=== PATIENT | male | born 1985 | race Caucasian/White ===

== ENCOUNTER → 2018-02-18 | Outpatient (CLI) | payer BC ==
--- NOTE | 2018-02-18 10:03 | XR ---
EXAMINATION TYPE: XR chest 2V DATE OF EXAM: 02/18/2018 COMPARISON: NONE TECHNIQUE: PA and lateral views submitted. HISTORY: Smoking, FINDINGS: The lungs are clear and there is no pneumothorax, pleural effusion, or focal pneumonia. IMPRESSION: 1. No acute process.
== END | disposition home or self-care (01) ==
LOC: RADXRMAIN 09:43
PROVIDERS: ATTEND Family Medicine
DX: Z00.00 Encounter for general adult medical examination without abnormal findings (principal)
CPT/HCPCS: 71046

== ENCOUNTER 2018-04-13 08:21 | Emergency (ER) | payer BC ==
[2018-04-13 08:28] VITALS: BP 100/54; PULSE 59; RESP 16; TEMP 97.9
--- NOTE | 2018-04-13 08:46 | ED ---
General Adult HPI - General Chief complaint: Recheck/Abnormal Lab/Rx Stated complaint: stiches re opened Time Seen by Provider: 04/13/18 08:41 Source: patient, RN notes reviewed, old records reviewed Mode of arrival: ambulatory Limitations: no limitations - History of Present Illness Initial comments: 32-year-old male presents for wound evaluation. Patient had lipoma removal on March 20. approximately 10 days after he had sutures removed. He presents today for evaluation of incision. 4 days prior to arrival patient was exercising, felt that his incision may have reopened. Lipoma Was removed from the right flank. Denies any purulence or erythema. Denies pain complaints at the site. Denies fever or chills. Patient is otherwise healthy. - Related Data Allergies Allergy/AdvReac Type Severity Reaction Status Date / Time No Known Allergies Allergy Verified 04/13/18 08:28 Review of Systems ROS Statement: Those systems with pertinent positive or pertinent negative responses have been documented in the HPI. ROS Other: All systems not noted in ROS Statement are negative. Past Medical History Past Medical History: No Reported History History of Any Multi-Drug Resistant Organisms: None Reported Additional Past Surgical History / Comment(s): Lipoma removal, tubes in ears Past Psychological History: No Psychological Hx Reported Smoking Status: Current every day smoker Past Alcohol Use History: Rare Past Drug Use History: Marijuana General Exam Limitations: no limitations General appearance: alert, in no apparent distress Head exam: Present: atraumatic, normocephalic Eye exam: Present: normal appearance, PERRL ENT exam: Present: normal exam Neck exam: Present: normal inspection. Absent: tenderness, meningismus Respiratory exam: Present: normal lung sounds bilaterally. Absent: respiratory distress Cardiovascular Exam: Present: regular rate, normal rhythm Back exam: Present: other (Right flank, there is a 1.5 cm incision with a 1 cm area of dehiscence. There is some dried blood within the incision. No recurrence, no surrounding cellulitis or erythema. No tenderness to palpation.) Course Vital Signs 04/13/18 08:23 Temperature 97.9 F Pulse Rate 59 L Respiratory 16 Rate Blood Pressure 100/54 O2 Sat by Pulse 98 Oximetry Medical Decision Making - Medical Decision Making 32-year-old presented for wound evaluation. Patient did have dehiscence of incision from previous lipoma. Wound is clean dry and intact, no surrounding cellulitis no purulent drainage. Patient is instructed on local wound care. Wound will be left open to heal by secondary intention. Disposition Clinical Impression: Dehiscence of incision Disposition: HOME SELF-CARE Condition: Good Instructions: Acute Wound Care (ED) Is patient prescribed a controlled substance at d/c from ED?: No Referrals: Giuseppe Mireles DO [Primary Care Provider] - 1-2 days Time of Disposition: 08:46
== END 2018-04-13 08:56 | disposition home or self-care (01) ==
LOC: EC 08:21
DX: T81.31XA Disruption of external operation (surgical) wound, not elsewhere classified, initial encounter (principal); F17.200 Nicotine dependence, unspecified, uncomplicated; Z98.890 Other specified postprocedural states
CPT/HCPCS: 99283

== ENCOUNTER 2021-07-04 15:00 | Emergency (ER) | payer BC ==
[2021-07-04 15:56] VITALS: RESP 18
--- NOTE | 2021-07-04 16:32 | ED ---
Extremity Problem HPI - General Chief complaint: Extremity Problem,Nontraumatic Stated complaint: leg pain, swelling, discoloration Time Seen by Provider: 07/04/21 15:59 Source: patient Mode of arrival: ambulatory Limitations: no limitations - History of Present Illness Initial comments: Patient is a 35-year-old otherwise healthy male who presents to the emergency department and with right lower extremity pain, swelling, redness. The patient reported that he started feeling right lower extremity pain 4 days ago when he was at a hockey game. No mechanism of injury. Patient never experienced this pain before. Patient describes the pain as a constant dull, 4/10 in severity. He states that the pain feels "close to the bone". No radiation of pain to the right thigh or right foot. Patient noticed redness and swelling yesterday. Patient denies chest pain, shortness of breath, trouble breathing, palpitations. Patient states that he works every day and is on his feet at work. Patient smokes one fourth pack of cigarettes a day. - Related Data Previous Rx's Medication Instructions Recorded Apixaban [Eliquis Starter Pack 0 mg PO DIRECTED 30 Days #1 07/04/21 (for VTE)] packet Allergies Allergy/AdvReac Type Severity Reaction Status Date / Time No Known Allergies Allergy Verified 07/04/21 17:18 Review of Systems ROS Statement: Those systems with pertinent positive or pertinent negative responses have been documented in the HPI. ROS Other: All systems not noted in ROS Statement are negative. Past Medical History Past Medical History: No Reported History History of Any Multi-Drug Resistant Organisms: None Reported Additional Past Surgical History / Comment(s): Lipoma removal, tubes in ears Past Psychological History: No Psychological Hx Reported Smoking Status: Current every day smoker Past Alcohol Use History: Occasional Past Drug Use History: Marijuana General Exam Limitations: no limitations General appearance: alert, in no apparent distress Head exam: Present: atraumatic, normocephalic, normal inspection Eye exam: Present: normal appearance, PERRL, EOMI. Absent: scleral icterus, conjunctival injection, periorbital swelling Neck exam: Present: normal inspection. Absent: tenderness, meningismus, lymphadenopathy Respiratory exam: Present: normal lung sounds bilaterally. Absent: respiratory distress, wheezes, rales, rhonchi, stridor Cardiovascular Exam: Present: regular rate, normal rhythm, normal heart sounds. Absent: systolic murmur, diastolic murmur, rubs, gallop, clicks GI/Abdominal exam: Present: soft, normal bowel sounds. Absent: distended, te nderness, guarding, rebound, rigid Extremities exam: Present: full ROM, normal capillary refill, joint swelling (right ankle ). Absent: tenderness, calf tenderness Right Lower Leg exam: Present: full ROM, swelling, erythema. Absent: tenderness, abrasion, laceration, deformity, Homans' sign Neurological exam: Present: alert, oriented X3, CN II-XII intact Psychiatric exam: Present: normal affect, normal mood Skin exam: Present: warm, dry, intact, normal color, erythema (diffuse erythema over the right lower extremity ). Absent: rash Course Vital Signs 07/04/21 15:51 Temperature 98.6 F Pulse Rate 79 Respiratory 18 Rate Blood Pressure 150/88 O2 Sat by Pulse 97 Oximetry Medical Decision Making - Medical Decision Making This is a 35-year-old male with right lower extremity pain, swelling, and erythema. Patient has no chest pain or shortness of breath. Labs are unremarkable. Venous duplex of the right lower extremity reveals a blood clot in the popliteal vein. Patient to be given 1 dose of our Eliquis in the emergency department and will be discharged with a prescription. - Lab Data Result diagrams: 07/04/21 16:45 07/04/21 16:45 Lab Results 07/04/21 07/04/21 Range/Units 16:45 16:45 WBC 6.7 (3.8-10.6) k/uL RBC 4.75 (4.30-5.90) m/uL Hgb 15.4 (13.0-17.5) gm/dL Hct 45.3 (39.0-53.0) % MCV 95.4 (80.0-100.0) fL MCH 32.4 (25.0-35.0) pg MCHC 34.0 (31.0-37.0) g/dL RDW 12.0 (11.5-15.5) % Plt Count 204 (150-450) k/uL MPV 7.2 Neutrophils % 58 % Lymphocytes % 29 % Monocytes % 6 % Eosinophils % 3 % Basophils % 1 % Neutrophils # 3.9 (1.3-7.7) k/uL Lymphocytes # 2.0 (1.0-4.8) k/uL Monocytes # 0.4 (0-1.0) k/uL Eosinophils # 0.2 (0-0.7) k/uL Basophils # 0.0 (0-0.2) k/uL Sodium 138 (137-145) mmol/L Potassium 4.1 (3.5-5.1) mmol/L Chloride 106 (98-107) mmol/L Carbon Dioxide 23 (22-30) mmol/L Anion Gap 9 mmol/L BUN 15 (9-20) mg/dL Creatinine 0.81 (0.66-1.25) mg/dL Est GFR (CKD-EPI)AfAm >90 (>60 ml/min/1.73 sqM) Est GFR (CKD-EPI)NonAf >90 (>60 ml/min/1.73 sqM) Glucose 99 (74-99) mg/dL Calcium 9.3 (8.4-10.2) mg/dL Disposition Clinical Impression: Deep vein thrombosis (DVT) of lower extremity Disposition: HOME SELF-CARE Condition: Stable Instructions (If sedation given, give patient instructions): Deep Vein Thrombosis (ED) Additional Instructions: Please follow up with primary care provider in 1-2 days. Take medications as di rected. Return for any worsening symptoms. Prescriptions: Apixaban [Eliquis Starter Pack (for VTE)] 0 mg PO DIRECTED 30 Days #1 packet Is patient prescribed a controlled substance at d/c from ED?: No Referrals: Sean Ortega MD [STAFF PHYSICIAN] - 1-2 days Time of Disposition: 17:56
--- NOTE | 2021-07-04 16:50 | US ---
EXAMINATION TYPE: US venous doppler duplex LE RT DATE OF EXAM: 07/04/2021 4:28 PM COMPARISON: NONE CLINICAL HISTORY: right leg swelling and redness . Right leg pain SIDE PERFORMED: Right TECHNIQUE: The lower extremity deep venous system is examined utilizing real time linear array sonog sylvia with graded compression, doppler sonography and color-flow sonography. VESSELS IMAGED: Common Femoral Vein Deep Femoral Vein Greater Saphenous Vein * Femoral Vein Popliteal Vein Small Saphenous Vein * Proximal Calf Veins (* superficial vessels) Right Leg: Positive for DVT popliteal vein IMPRESSION: There is acute deep vein thrombosis in the right popliteal vein.
[2021-07-04 16:58] LABS: Basophils % (A) 1 %; Eosinophils # (A) 0.2 k/uL (0-0.7); Eosinophils % (A) 3 %; HCT 45.3 % (39.0-53.0); HGB 15.4 gm/dL (13.0-17.5); Lymphocytes % (A) 29 %; MCH 32.4 pg (25.0-35.0); MCV 95.4 fL (80.0-100.0); Mean Platelet Volume 7.2; Monocytes # (A) 0.4 k/uL (0-1.0); Monocytes % (A) 6 %; Neutrophils # (A) 3.9 k/uL (1.3-7.7); Neutrophils % (A) 58 %; Platelet Count 204 k/uL (150-450); RBC 4.75 m/uL (4.30-5.90); WBC 6.7 k/uL (3.8-10.6)
[2021-07-04 17:10] LABS: African American GFR (CKD) >90 (>60 ml/min/1.73 sqM); Anion Gap 9 mmol/L; Blood Urea Nitrogen 15 mg/dL (9-20); Calcium 9.3 mg/dL (8.4-10.2); Carbon Dioxide 23 mmol/L (22-30); Chloride 106 mmol/L (98-107); Glucose 99 mg/dL (74-99); Non-African American GFR(CKD) >90 (>60 ml/min/1.73 sqM); Potassium 4.1 mmol/L (3.5-5.1); Sodium 138 mmol/L (137-145)
[2021-07-04] MEDS ORDERED: APIXABAN 5 MG TAB PO STA (17:19)
[2021-07-04 18:10] VITALS: BP 134/78; PULSE 80; TEMP 98
== END 2021-07-04 18:09 | disposition home or self-care (01) ==
LOC: EC 15:00
DX: I82.401 Acute embolism and thrombosis of unspecified deep veins of right lower extremity (principal); F17.200 Nicotine dependence, unspecified, uncomplicated; F12.90 Cannabis use, unspecified, uncomplicated
CPT/HCPCS: 36415; 80048; 85025; 99284

== ENCOUNTER 2023-11-01 17:32 | Emergency (ER) | payer BC ==
--- NOTE | 2023-11-01 17:43 | ED ---
General Adult HPI - General Stated complaint: Fall, Right side of face injury Time Seen by Provider: 11/01/23 17:38 - History of Present Illness Initial comments: 37-year-old male with a past medical history significant for MTHFR gene mutation on Eliquis presenting to the ED with a chief complaint of head injury. States [place] skate park on his [place] and states that he missed the landing and hit the right side of his forehead on a metal rail. States that he "blacked out" for split-second. Now admits to some nausea and headache. Any other injury at this time. Additionally, notes that he hurt his right lower leg a few weeks ago. Reports that he did also like to have that checked out. Reports improving pain, redness and swelling of it. - Related Data Previous Rx's Medication Instructions Recorded Apixaban [Eliquis Starter Pack 0 mg PO DIRECTED 30 Days #1 07/04/21 (for VTE)] packet Allergies Allergy/AdvReac Type Severity Reaction Status Date / Time No Known Allergies Allergy Verified 11/01/23 18:29 Review of Systems ROS Statement: Those systems with pertinent positive or pertinent negative responses have been documented in the HPI. ROS Other: All systems not noted in ROS Statement are negative. Past Medical History Past Medical History: No Reported History History of Any Multi-Drug Resistant Organisms: None Reported Additional Past Surgical History / Comment(s): Lipoma removal, tubes in ears Past Psychological History: No Psychological Hx Reported Smoking Status: Current every day smoker Past Alcohol Use History: Occasional Past Drug Use History: Marijuana General Exam - General Exam Comments Initial Comments: Visual Physical Exam General: Well-appearing, nontoxic, no acute distress. Eyes: PERRLA, EOMI ENT: Airway patent Chest: Nonlabored breathing Skin: No visual rash, normal skin tone Neuro: Alert and oriented 3 Musculoskeletal: No gross abnormalities General appearance: alert, in no apparent distress Head exam: Present: other (Vital signs or raccoon's eyes however patient does have right periorbital ecchymosis) Eye exam: Present: normal appearance, PERRL, EOMI Neck exam: Present: normal inspection Respiratory exam: Present: normal lung sounds bilaterally Cardiovascular Exam: Present: regular rate, normal rhythm GI/Abdominal exam: Present: soft Extremities exam: Present: other (Right lower extremity does appear red and swollen however no significant tenderness to palpation. No significant warmth. DP/PT pulses intact.) Neurological exam: Present: alert, oriented X3, CN II-XII intact Skin exam: Present: warm, dry Course Vital Signs 11/01/23 18:23 Temperature 97.9 F Pulse Rate 82 Respiratory 20 Rate Blood Pressure 144/88 O2 Sat by Pulse 97 Oximetry Medical Decision Making - Medical Decision Making Quicknote portion performed. Signed Damian Molina PA-C Was pt. sent in by a medical professional or institution ([facility], MANAGER CORE, urgent care, hospital, or [facility]...) When possible be specific @ -No Did you speak to anyone other than the patient for history (EMS, parent, family, police, friend...)? What history was obtained from this source @ -No Did you review nursing and triage notes (agree or disagree)? Why? @ -I reviewed and agree with nursing and triage notes Were old charts reviewed (outside hosp., previous admission, EMS record, old EKG, old radiological studies, urgent care reports/EKG's, [facility] records)? Report findings @ -No old charts were reviewed Differential Diagnosis (chest pain, altered mental status, abdominal pain women, abdominal pain men, vaginal bleeding, weakness, fever, dyspnea, syncope, headache, dizziness, GI bleed, back pain, seizure, CVA, palpatations, mental health, musculoskeletal)? @ -Differential Musculoskeletal Muscular strain, contusion, ligament sprain, fracture, arthritis, septic arthritis, bursitis, cellulitis, muscle spasm, nerve compression, DVT, arterial occlusion, herpes zoster, electrolyte abnormality, tumor.... This is not meant to be in all inclusive list EKG interpreted by me (3pts min.). @ -None X-rays interpreted by me (1pt min.). @ -X-ray of the right tib-fib interpreted me which revealed no evidence of acute finding CT interpreted by me (1pt min.). @ -CT brain and cervical spine interpreted me which revealed no evidence of acute finding U/S interpreted by me (1pt. min.). @ -Ultrasound right lower extremity interpreted by me which revealed no evidence of DVT or other acute finding. What testing was considered but not performed or refused? (CT, X-rays, U/S, labs)? Why? @ -None What meds were considered but not given or refused? Why? @ -Patient was offered analgesia however at this time declined. Did you discuss the management of the patient with other professionals (professionals i.e. , PA, MANAGER CORE, lab, RT, psych nurse, social services specialist, die drawing checker, teacher, financial compliance officer, case making machine operator)? Give summary @ -No Was smoking cessation discussed for >3mins.? @ -No Was critical care preformed (if so, how long)? @ -No Were there social determinants of health that impacted care today? How? (Homelessness, low income, unemployed, alcoholism, drug addiction, transportat ion, low edu. Level, literacy, decrease access to med. care, fdc, rehab)? @ -No Was there de-escalation of care discussed even if they declined (Discuss DNR or withdrawal of care, Hospice)? DNR status @ -No What co-morbidities impacted this encounter? (DM, HTN, Smoking, COPD, CAD, Cancer, CVA, ARF, Chemo, Hep., AIDS, mental health diagnosis, sleep apnea, morbid obesity)? @ -MTHFR mutation on Eliquis Was patient admitted / discharged? Hospital course, mention meds given and route, prescriptions, significant lab abnormalities, going to OR and other pertinent info. @ -Discharge 37-year-old male with a past medical history significant for MTHFR mutation with prior DVT on Eliquis presenting to the ED with a chief complaint of head injury. Patient states he was doing bike tricks at the [employer] when he failed the trick causing him to fall onto his right side hitting his head on the metal rail. States he had brief LOC. Denies any other injuries at this time. Imaging of the brain and cervical spine was reviewed which revealed no evidence of acute finding. Patient also does note remote history of right lower extremity injury however states that this has been improving over the last few weeks however reported that he would like to also have that checked out. Imaging studies including x-ray and ultrasound revealed no evidence of fracture, DVT, or other acute finding. Discharged home in stable condition. Advised wearing a helmet in the future. Undiagnosed new problem with uncertain prognosis? @ -No Drug Therapy requiring intensive monitoring for toxicity (Heparin, Nitro, Insulin, Cardizem)? @ -No Were any procedures done? @ -No Diagnosis/symptom? @ -Status post fall, head injury Acute, or Chronic, or Acute on Chronic? @ -Acute Uncomplicated (without systemic symptoms) or Complicated (systemic symptoms)? @ -Uncomplicated Side effects of treatment? @ -No Exacerbation, Progression, or Severe Exacerbation? @ -No Poses a threat to life or bodily function? How? (Chest pain, USA, SC, pneumonia, PE, COPD, DKA, ARF, appy, cholecystitis, CVA, Diverticulitis, Homicidal, Suicidal, threat to staff... and all critical care pts) @ -No Disposition Clinical Impression: Fall from bicycle, Head injury, Right leg pain Disposition: HOME SELF-CARE Condition: Good Instructions (If sedation given, give patient instructions): Concussion (ED) Additional Instructions: Please return to the Emergency Department if symptoms worsen or any other concerns. Please follow-up with your primary care provider. Please use a helmet in the future. Is patient prescribed a controlled substance at d/c from ED?: No Referrals: Sean Ortega MD [Primary Care Provider] - 1-2 days Time of Disposition: 20:29
[2023-11-01 18:31] VITALS: TEMP 97.9
--- NOTE | 2023-11-01 19:33 | CT ---
EXAMINATION TYPE: CT brain cspine wo con CT DLP: 1683.2 mGycm, Automated exposure control for dose reduction was used. DATE OF EXAM: 11/01/2023 7:00 PM COMPARISON: None. CLINICAL INDICATION:Male, 37 years old with history of Head injury on eliquis; head injury, bruising and swelling to right eye. TECHNIQUE: Brain: Multiple axial CT images of the brain were obtained without IV contrast. Cspine: Axial CT images from the skull base to the inferior aspect of T2 we obtained without intraven ous contrast. Coronal and sagittal reformatted images were also reviewed. FINDINGS: Brain: Extra-axial spaces: No abnormal extra-axial fluid collections. Ventricular system: Within normal limits Cerebral parenchyma: No acute intraparenchymal hemorrhage or mass effect. The sullivan-white junction is well differentiated. Cerebellum: Unremarkable. Mass effect: No evidence of midline shift. Intracranial vasculature: unremarkable Soft tissues: Right periorbital edema/hematoma. Calvarium/osseous structures: No depressed skull fracture. Paranasal sinuses and mastoid air cells: Clear. Visualized orbits: Orbital contents are intact. Cervical spine: Fracture: None. Osseous structures: Multilevel degenerative disc disease changes with endplate spurring and disc oste ophyte complex's. Vertebral alignment: Within normal limits. Spinal canal/Neural Foramina: No evidence of significant spinal canal narrowing. No evidence for sign ificant neural foraminal stenosis. Neck soft tissues: Prevertebral soft tissues are within normal limits. Other: The airway is patent. The lung apices are clear. IMPRESSION: 1. No acute intracranial process. 2. Right periorbital edema/hematoma No evidence of fracture. The orbits and globes are intact. 3. No evidence of cervical spine fracture. 4. Mild multilevel degenerative disc disease.
--- NOTE | 2023-11-01 19:35 | XR ---
EXAMINATION TYPE: XR tibia fibula RT DATE OF EXAM: 11/01/2023 7:09 PM CLINICAL INDICATION:Male, 37 years old with history of r/o fx or other acute process; [facility] COMPARISON: None TECHNIQUE: XR tibia fibula RT; tibia/fibula was examined in AP and lateral projections. FINDINGS: No evidence of any acute osseous pathology or joint dislocation. A fabella is present. Ther e is soft tissue edema around the ankle and leg. IMPRESSION: 1. No evidence of acute fracture. 2. Soft tissue edema around the ankle and leg.
--- NOTE | 2023-11-01 20:09 | US ---
EXAMINATION TYPE: US venous doppler duplex LE RT DATE OF EXAM: 11/01/2023 7:49 PM COMPARISON: NONE CLINICAL INDICATION: Male, 37 years old with history of r/o dvt; Hx DVT Rt pop 2021 SIDE PERFORMED: Right TECHNIQUE: The lower extremity deep venous system is examined utilizing real time linear array sonog sylvia with graded compression, doppler sonography and color-flow sonography. VESSELS IMAGED: Common Femoral Vein Deep Femoral Vein Greater Saphenous Vein * Femoral Vein Popliteal Vein Small Saphenous Vein * Proximal Calf Veins (* superficial vessels) Right Leg: Negative for DVT IMPRESSION: Grayscale, color doppler, spectral doppler imaging performed of the deep veins of the lo wer extremities. There is normal flow, compressibility, vascular waveforms.
[2023-11-01 20:47] VITALS: BP 120/75; PULSE 73; RESP 16
== END 2023-11-01 20:41 | disposition home or self-care (01) ==
LOC: EC 17:32
DX: S05.11XA Contusion of eyeball and orbital tissues, right eye, initial encounter (principal); M79.661 Pain in right lower leg; F17.200 Nicotine dependence, unspecified, uncomplicated; Z79.01 Long term (current) use of anticoagulants; Z86.718 Personal history of other venous thrombosis and embolism; V18.4XXA Pedal cycle driver injured in noncollision transport accident in traffic accident, initial encounter; Y93.55 Activity, bike riding
CPT/HCPCS: 70450; 72125; 99284